=== PATIENT | male | born 1960 | race Caucasian/White ===

== ENCOUNTER 2020-09-26 09:20 | Day surgery (SDC) | payer BC ==
[~2020-09-26 09:20] MED LIST: Lactated Ringers 1,000 ML IV SCH
[2020-09-26] MEDS ORDERED: fentaNYL 100 MCG/2 ML SDV ONE (09:42)
[2020-09-26] MEDS ORDERED: Propofol 200 MG/20 ML SDV ONE ×2 (09:42→12:03)
[2020-09-26] MEDS: Lactated Ringers 1,000 ML IV SCH (09:57)
--- NOTE | 2020-09-26 13:23 | OR ---
PREOPERATIVE DIAGNOSIS: Screening colonoscopy. POSTOPERATIVE DIAGNOSIS: Colon polyp. PROCEDURE PERFORMED: Total flexible colonoscopy with biopsies. ANESTHESIA: MAC anesthesia. COMPLICATIONS: None. BLOOD LOSS: None. FINDINGS: Cecal polyp, 2 mm, cold forceps. START TIME: 1157. CECUM TIME: 1200. STOP TIME: 1212. BOWEL PREP: [place] class 2. INDICATION FOR PROCEDURE: Mr. Carroll is a 60-year-old male who presents for screening colonoscopy. He tells me his last scope was 6 years ago. He says he has never had polyps. He denies family history of colon cancer. No bloody or dark black stools. DETAILS OF PROCEDURE: After informed consent was obtained, the patient was placed in left lateral decubitus position in the procedure room. MAC anesthesia was induced by Anesthesia colleagues. Colonoscope was introduced into the rectum and advanced all the way to the cecum. The appendiceal orifice was photographed. The terminal ileum was intubated and photographed. The colonoscope was then slowly withdrawn. No pathology was identified except for what is mentioned in the above findings section. A retroflexed view was obtained. Colonoscope was removed and the patient was awoken from anesthesia by Anesthesia colleagues without incident. PATHOLOGY: Colon, cecum polyp Benign colonic mucosa with lymphoid aggregate present No adenomatous or hyperplastic polyp identified with deeper levels performed RECOMMENDATIONS: Repeat screening colonoscopy in 5 years. RKM: 09/26/2020 12:16:51 MODL: 09/26/2020 12:37:19 /[id number] MTDD
--- NOTE | 2020-10-07 14:11 | LETTER ---
10/07/2020 RE: SAVANNAH CARROLL : 1960 [place] Carroll [address] [place] [id number] Dear Mr. Carroll: I am writing to inform you of the pathology results from your recent colonoscopy. We took 1 biopsy of some tissue that appeared to be a polyp. However, on final pathology, there was no evidence of a precancerous polyp. I recommend you get a repeat screening colonoscopy in 5 years. Warmest regards,
== END 2020-09-26 13:00 | disposition home or self-care (01) ==
LOC: VM.SDS 09:20
PROVIDERS: ATTEND Student in an Organized Health Care Education/Training Program
DX: Z12.11 Encounter for screening for malignant neoplasm of colon (principal)
CPT/HCPCS: 00812; J2704; J3010; J7120